=== PATIENT | female | born 1995 | race Caucasian/White ===

== ENCOUNTER 2024-07-23 14:03 | Outpatient (AMB) | payer BC, SELFPAY ==
[2024-07-23 14:18] VITALS: BP 135/94; PULSE 109; RESP 18; TEMP 36.2; O2SAT 98
--- NOTE | 2024-07-23 14:18 | AMB.GYNCLNOT ---
Vital Signs 07/23/24 14:18 Weight 48.591 kg Weight Measurement Method Standing Scale BP 135/94 H Blood Pressure Source Automatic Cuff Blood Pressure Location Left Upper Arm Position Sitting Respiration 18 Pulse 109 H Pulse Source Monitor Temp 97.2 F Temp Source Oral Pulse Oximetry (%) 98 Oxygen Delivery Method Room Air Allergies/Home Meds Allergies & Medications Allergies No Known Allergies Allergy (Verified 07/23/24 14:20) Medication Reconciliation norelgestromin 150 mcg-e.estradiol 35 mcg/24 hr weekly transderm patch 1 patch transdermal QWEEK #3 ea 07/23/24 [Rx] Intake Visit Data Collection New Patient or Established: New Patient (never been to [facility]) Reason for Visit:: BC REFILL Seen by Clinical Staff ONLY (RN/MA): No Lawn Care Professional Required: No Do You Feel Safe at Home: Yes Authorities Contacted: N/A PCP or OBGYN visit in last 3 months: Yes Hx Now: No Are you currently on any form of Control: Yes Last menstrual period: 07/17/24 Pain Present Currently: No Pain Scale Used: Bis[place]-William/Numerical Pain scale:: 0 Smoking Status Smoking Status: Never smoker Collar Turner history Collar Turner History Menstrual regularity: regular Flow: heavy Monthly: Yes Age at menarche: 16 Currently sexually active: Yes Questionnaires Covid-19 Vaccine Questionnaire Has patient been vacinated for Covid-19 Have you been vacinated for Covid-19: Yes PHQ-9 PHQ-2 Over the last 2 weeks, how often have you been bothered by any of the following problems? 1. Little interest or pleasure in doing things: not at all 2. Feeling down, depressed, or hopeless: not at all Total score: 0 PHQ-9 3. Trouble falling or staying asleep, or sleeping too much: Not at all 4. Feeling tired or having little energy: Not at all 5. Poor appetite or overeating: Not at all 6. Feeling bad about yourself - or that you are a failure or have let yourself or your family down: Not at all 7. Trouble concentrating on things, such as reading the newspaper or watching television: Not at all 8. Moving or speaking so slowly that other people could have noticed? - Or the opposite - being so fidgety or restless that you have been moving around a lot more than usual: not at all 9. Thoughts that you would be better off or of hurting yourself in some way: Not at all Total score: 0 If you checked off any problems, how difficult have these problems made it for you to do your work, take care of things at home, or get along with other people?: not difficult at all Source: Developed by Drs. Vaughn Agrawal, Wendy Coy, Bernabe Morrow and colleagues, with an educational kwesi from [employer]. 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 She has a year and 1/2-year-old son Tobacco History Smoking Status: Never smoker Second Hand Smoke Exposure: No Alcohol History Alcohol Intake: Never Domestic Abuse History Do You Feel Safe at Home: Yes History of Present Illness HPI Narrative The patient is a 28-year-old -0-0-1 who used to see me in [place]. She presents as a new patient. She is not due for a Pap smear until January. Her son is present with her today. He was born in 2022 he is about a year and a half now. He weighed 7 pounds 14 ounces. Patient went natural, I delivered her . She had an episiotomy which tore into a partial third-degree. She pushed 45 minutes. She stated I had to cut the episiotomy because his heart rate was dropping and he had a tight cord around his neck. Patient is on norestradiol for control but states that she forgets to take pills and would like to switch to the Ortho Evra patch. She is actually due to start her patch today. She just finished her pill free week on Tuesday. Otherwise she has no gynecological complaints: no abnormal discharge, no new sexual partners ,no breast tenderness ,no bleeding between periods. Besides anxiety the patient does had not have any significant past medical history. She did have a spinal fusion in the past for severe scoliosis. Her blood pressure is up today as she is anxious. It is not usually elevated. Exam General General Appearance: alert, in no apparent distress, comfortable, cooperative, healthy appearing, well developed, well groomed and anxious Chest Chest inspection: Present normal inspection and symmetric chest wall rise Psych Psychiatric exam: Present normal affect and normal mood Skin Skin exam: Present warm, dry, intact and normal color Office Procedures OB Clinic LOC & Office Proc's Nursing/Assessment Patient Status: Initial/New Patient OB Clinic Nursing Assessment: Medication Reconciliation, Update PMH in EMR and Vital Signs OB Clinic Coordination of Care: Education Complex Pt/Fam, Consent,records obtained, informed consent, Lab and Imaging orders and Staff clarify orders New Patient Charge New Patient Point Assignment: [id number] New Patient Point Charge: MEASUREMENT COORDINATOR Level 3 (9228-2233) Assessment & Plan Diagnosis / Problem List (1) Contraceptive surveillance: Status: Acute Qualifiers: Contraceptive type: pill Qualified Code(s): Z30.41 - Encounter for surveillance of contraceptive pills Assessment and Plan: The patient states she is tired of taking control pills and might forget to take them. She wants to try the Ortho Evra patch. She is due to place 1 today. She will put this on clean dry skin. She will remove the patch in place in a different area of her body. How to place the patch was discussed in detail. I will call this into employee pharmacy at [facility]. She will follow-up in January for an annual exam.
== END 2024-07-23 14:27 | disposition home or self-care (01) ==
LOC: HODSOBC 14:03
PROVIDERS: PCP Family Medicine; Referring Provider Family Medicine; Supervising Provider Obstetrics & Gynecology; Visit Provider Obstetrics & Gynecology
DX: Z30.016 Encounter for initial prescription of transdermal patch hormonal contraceptive device (principal)
CPT/HCPCS: 99203; G0463